=== PATIENT | male | born 1955 | race Caucasian/White ===

== ENCOUNTER → 2024-01-30 13:51 | Outpatient (REF) | payer MEDICARE, OTHER, SELFPAY | LOC: RAD 13:51 | PROVIDERS: ATTENDING PHYSICIAN Nurse Practitioner Family | DX: R05.1 Acute cough (principal) | CPT/HCPCS: 71046 ==

== ENCOUNTER → 2024-10-13 15:07 | Outpatient (REF) | payer MEDICARE, OTHER, SELFPAY | LOC: DHSLP 15:07 | PROVIDERS: ATTENDING PHYSICIAN Internal Medicine Critical Care Medicine; FAMILY PHYSICIAN Family Medicine | DX: G47.33 Obstructive sleep apnea (adult) (pediatric) (principal); G47.31 Primary central sleep apnea; G47.61 Periodic limb movement disorder | CPT/HCPCS: 95810 ==

== ENCOUNTER 2024-12-03 12:22 | Emergency (ER) | payer MEDICARE, OTHER, SELFPAY ==
[2024-12-03 12:23] VITALS: BP 142/75
--- NOTE | 2024-12-03 13:24 | ED.GENMED ---
History of Present Illness
General
Chief Complaint: Head Injury
Source: patient
Exam Limitations: none
Time Seen by Provider: 12/03/24 13:12
Nursing documentation reviewed up to this point in time: agreed with
History of Present Illness
History of Present Illness:
69-year-old male presenting to the emergency department today after slipping on ice hitting the back of his head did not lose consciousness not on blood thinners does take aspirin daily. Has noticed a enlarging lump to the back of his head. Has
some mild left posterior neck pain. Denies any numbness weakness abdominal pain chest pain. Has been able to ambulate.
Past History
Past History
ED Past Medical History: CVA, GERD and Other (ADHD, hemolytic anemia pituitary disorder, zoster)
ED Past Surgical History: Tonsilectomy and Other (History of hernia surgery as a child, post reduction 27 years ago,)
Social History
Tobacco: Non-smoker
Personal:
Living: with family
Employment: Not employed
Review of Systems
Review of Systems
Allergies reviewed?: Yes
All Other Systems: ROS reviewed and negative except as documented in HPI and ROS
Phy Exam
Physical Exam
Physical Exam:
GENERAL: Alert , in no apparent distress
EYE: pupils equal and reactive
NECK: Supple, no significant adenopathy.
ENT: Hematoma to the left posterior scalp o/p clr, mmm.
CARDIAC: Regular rate and rhythm .
LUNGS: Clear breath sounds bilaterally, no acute respiratory distress, no wheezes/rales/rhonchi
ABDOMEN: Soft, without focal tenderness, no r/g, no cvat
NEUROLOGICAL: Alert and oriented, no focal neuro deficits
SKIN: Warm and dry, skin intact.
MUSCULOSKELETAL: No edema, well perfused.
PSYCH: Normal and appropriate interaction.
Course
Orders/Labs/Results
Orders:
Orders
12/03/24 13:23
CT Cervical Spine W/o Iv Contr Urgent
Comment:
Reason For Exam: left neck pain
CT Head W/o Iv Contrast Urgent
Comment:
Reason For Exam: fall hit back of head
Vital Signs
Initial and Last Documented VS:
Initial Vital Signs
Temp Pulse Resp BP Pulse Ox
98.5 F 89 20 142/75 95
12/03/24 12:23 12/03/24 12:23 12/03/24 12:23 12/03/24 12:23 12/03/24 12:23
Last Documented Vital Signs
Temp Pulse Resp BP Pulse Ox
98.5 F 89 20 142/75 95
12/03/24 12:23 12/03/24 12:23 12/03/24 12:23 12/03/24 12:23 12/03/24 12:23
MDM/Problems Addressed
MDM/Problems Addressed:
69-year-old male presenting to the emergency department after slipping on ice hitting the back of his head denies additional injuries otherwise. Does have a hematoma to his left posterior scalp some mild discomfort to the left posterior neck no
midline pain normal neurologic evaluation. Due to his advanced age plan for CT scan for further assessment. CT scan negative of the head and neck no emergent findings stable for outpatient management return precautions given.
*Critical Care Note
Total Time (30-74mins, 75-104mins- exclusive of procedures): Not Applicable
ED Attending Note
-
Portions of this chart may have been created with voice recognition software.� Occasional wrong word or��sound alike� substitutions may have occurred due to the inherent limitations of voice recognition software.
Discharge Plan
Departure
Patient Disposition: Home (Routine Discharge)
Date of Disposition: 12/03/24
Time of Disposition: 14:59
Patient with high blood pressure during this ER visit?: No
Condition: Good
Covid-19: Not Applicable
Discharge Problem:
Fall, Hematoma of occipital region of scalp
Instructions: Minor Head Injury (DC)
Prescriptions:
No Action
aspirin 325 MG tablet
325 mg PO DAILY
multivitamin 1 EACH tablet
1 ea PO DAILY
venlafaxine 75 MG capsule,extended release 24hr
75 mg PO DAILY
dextroamphetamine-amphetamine [Adderall] 30 MG tablet
30 mg PO DAILY
Referrals:
Franklin De La Cruz DO [Family Provider] -
Activity Restrictions/Additional Instructions:
You came to the emergency department today with concerns after a fall. Here you had a CT scan of your neck and head without emergent findings. Return to the emergency department any worsening, new or concerning symptoms.
Interventions
Interventions:
*Risk Screen - Suicide Last Done: 12/03/24 12:23
*General Assessment Last Done: 12/03/24 12:23
*Neglect/Abuse Screening Last Done: 12/03/24 12:23
ED- Neurological Assessment Last Done: 12/03/24 13:55
ED-Skin Assessment Last Done: 12/03/24 13:55
Discharge Date and Time
Print Language: LATVIAN
== END 2024-12-03 15:18 | disposition home or self-care (01) ==
LOC: EMR 12:22
PROVIDERS: EMERGENCY PHYSICIAN Emergency Medicine; FAMILY PHYSICIAN Family Medicine
DX: S00.03XA Contusion of scalp, initial encounter (principal); W00.0XXA Fall on same level due to ice and snow, initial encounter; K21.9 Gastro-esophageal reflux disease without esophagitis; Z86.73 Personal history of transient ischemic attack (TIA), and cerebral infarction without residual deficits
CPT/HCPCS: 99284; 70450; 72125

== ENCOUNTER 2025-01-14 06:23 | Day surgery (SDC) | payer MEDICARE, OTHER, SELFPAY | END 2025-01-14 16:06 | disposition home or self-care (01) | LOC: GI 06:23 | PROVIDERS: ATTENDING PHYSICIAN Student in an Organized Health Care Education/Training Program | DX: K62.5 Hemorrhage of anus and rectum (principal); R19.5 Other fecal abnormalities; K64.4 Residual hemorrhoidal skin tags; K55.21 Angiodysplasia of colon with hemorrhage; D12.2 Benign neoplasm of ascending colon; D12.3 Benign neoplasm of transverse colon; D12.4 Benign neoplasm of descending colon; K63.5 Polyp of colon | CPT/HCPCS: 45380; 45382; 88305 ==

== ENCOUNTER 2025-04-25 23:06 | Inpatient (IN) | payer MEDICARE, OTHER, SELFPAY ==
[2025-04-25 17:22] VITALS: BP 143/69
[2025-04-25 17:49] LABS: Hematocrit 36.5 % (39.0-52.0); Hemoglobin 12.1 g/dL (13.0-18.0); Mean Corp Hgb Conc. 33.2 g/dL (33.0-37.0); Mean Corpuscular Volume 82.4 fL (80.0-94.0); Nucleated Red Blood Cells % 0 % (-); Platelet Count 197 10^3/uL (130-400); Red Cell Dist. Width 15.2 % (11.5-14.5)
[2025-04-25 18:06] LABS: ALT (SGPT) 28 U/L (0-50); AST (SGOT) 38 U/L (17-59); Albumin 4.1 g/dl (3.5-5.0); Alkaline Phosphatase 129 U/L (38-126); Blood Urea Nitrogen 17 mg/dl (9-20); Calcium 9.0 mg/dl (8.4-10.2); Carbon Dioxide 26 mmol/L (22-30); Chloride 107 mmol/L (98-107); Glucose 124 mg/dl (70-99); Potassium 4.2 mmol/L (3.5-5.1); Sodium 139 mmol/L (135-145); Total Protein 7.0 g/dl (6.3-8.2); eGFR > 60.00
[2025-04-25 18:13] LABS: Troponin I < 0.012 ng/ml
[2025-04-25 18:50] VITALS: BP 124/65
--- NOTE | 2025-04-25 18:59 | ED.GENMED ---
History of Present Illness
<Risa Carranza PA-C - Last Filed: 04/26/25 01:31>
General
Chief Complaint: Fainting/Passed Out
Source: patient
Exam Limitations: none
Time Seen by Provider: 04/25/25 18:55
History of Present Illness
History of Present Illness:
69yoM with a history of anemia and prior CVA presenting via EMS for evaluation after a syncopal episode around 4pm this afternoon. Patient was outside at a [employer] [facility] [employer] match. He had a beer today which is unusual for him. He admits he was not drinking
much water. He was sitting down when he started to experience abdominal pain and the urge to have a bowel movement. He then felt like 'something was not right' and lost consciousness. He was unconscious for about 30 seconds. There was no
seizure-like activity or incontinence. He denies any preceding dizziness, chest pain, shortness of breath, palpitations. He continues to have 'gas pains' in his abdomen and has had 3 episodes of diarrhea since the syncopal episode. He has a
history of syncopal episodes every 6 months or so but he typically has more warning before passing out. He denies any history of heart disease. Patient received 1L NS prehospital.
Past History
<Risa Carranza PA-C - Last Filed: 04/26/25 01:31>
Past History
ED Past Medical History: CVA, GERD and Other (ADHD, hemolytic anemia pituitary disorder, zoster)
ED Past Surgical History: Tonsilectomy and Other (History of hernia surgery as a child, post reduction 27 years ago,)
Social History
Tobacco: Non-smoker
Personal:
Living: with family
Employment: Not employed
Phy Exam
<Risa Carranza PA-C - Last Filed: 04/26/25 01:31>
General Physical Exam
General Presentation: no apparent distress
General Skin: warm and dry
General Habitus: normal
General Mental: alert
ENT Exam
ENT Exam: normocephalic
Cardiovascular Exam
Cardiovascular Exam: regular rate/rhythm
Pulmonary Exam
Pulmonary Exam: lungs clear, no respiratory distress, no rales, no crackles, no rhonchi and no wheezing
Gastrointestinal Exam
Gastrointestinal Exam: soft, non distended and other (Mild generalized tenderness)
Neurological Exam
Neurological Exam: alert
[place] Coma Scale
Eye Opening: Spontaneous
Verbal Response: Oriented
Motor Response: Obeys Commands
GCS Total Score: 15
Skin Exam
Skin Exam: normal color and warm/dry
Psychiatric Exam
Psychiatric Exam: normal mood/affect
<Molina Steward MD - Last Filed: 04/25/25 21:46>
[place] Coma Scale
GCS Total Score: 15
Course
<Risa Carranza PA-C - Last Filed: 04/26/25 01:31>
Orders/Labs/Results
Orders:
Orders
04/25/25 17:25
Electrocardiogram (*1) Urgent
Reason for Study: Chest Pain
EKG- Treatment ONCE
04/25/25 17:36
Complete Blood Count/With Diff Urgent
Comprehensive Metabolic Panel Urgent
Lipase Urgent
Comment: ADD ON
Troponin I Urgent
04/25/25 19:23
Cardiac Monitoring- Treatment ONCE
0.9% Sodium Chloride 500 ml [Nss] 500 ml IV BOLUS
04/25/25 19:24
Add On- LAB Urgent
Tests Added?: lipase
CT Abd/pelvis W Iv Cont Urgent
Comment:
Reason For Exam: abd pain, syncope
EKG- Treatment ONCE
04/25/25 19:55
Ondansetron Injectable [Zofran] 4 mg .ROUTE .STK-MED ONE
Ondansetron Injectable [Zofran] 4 mg IV NOW STA
04/25/25 20:00
Stool Culture Urgent
PRATIK Source: Feces/Stool
Specimen Description:
Date Specimen was Collected: 04/25/25
Time Specimen was Collected: 19:54
04/25/25 20:07
Lactate Level [Lactic Acid] Urgent
04/25/25 20:30
Electrocardiogram (*1) Urgent
Reason for Study: Syncope
04/25/25 21:37
Type+Screen Urgent
Protime/PTT Urgent
Troponin I Urgent
04/25/25 22:18
Add On - Microbiology Urgent
Comments:: stool
Tests Added?: C DIFF
04/25/25 22:34
0.9% Sodium Chloride 1000 ml [Nss] 1,000 ml IV BOLUS
04/25/25 22:52
Admit/Transfer Patient As Directed
Co-Sign Provider:
Level of Care: Inpatient admission
Assign to:: Telemetry
Physician / Group: Adeline Snow
Diagnosis: colitis
Reason for Telemetry: Chest Pain syndromes
Date to Stop Telemetry: 04/27/25
Time to Stop Telemetry: 11:00
Reason for Hospitalization: colitis
Expected length of stay greater than two midnights?: Yes
ELOS- Estimated Length of Stay in days: 3
I certify the patient meets the requirements for IP care: Yes
PRN Pain Medication Management As Directed
May give lesser potent ordered pain med per pt: Yes
preference::
Protocol:: Medication orders for pain may be administered in a
manner that supports deferring to patient preference
when the pt is:
- Requesting an ordered lesser potent pain medication.
Least to most potent pain medications are defined
as: acetaminophen < NSAID < tramadol < opioids
(morphine, oxycodone, hydromorphone).
- Requesting a lesser dose of the same medication IF
ORDERED.
- Requesting a less intrusive route of administration
if both routes are prescribed by the provider (PO <
IV).
04/25/25 22:55
Code Status As Directed
Resuscitation Status: Full Code
04/25/25 23:45
Piperacillin/Tazo 3.375 Gram [Zosyn] 3.375 gram in 50 ml IV Q6H
04/26/25 00:12
0.9% Sodium Chloride 1000 ml [Nss] 1,000 ml IV 100 mls/hr
Acetaminophen [Tylenol] 650 mg PO Q4HPRN PRN
HYDROmorphone [Dilaudid] 0.5 mg IV Q3HPRN PRN
Ondansetron Injectable [Zofran] 4 mg IV Q6HPRN PRN
04/26/25 00:12
SURGICAL CONSULT Routine
Consulting Provider: Polo Melara
Was physician already notified: Yes
Activity As Directed
Activity Level: As Tolerated
Pneumatic Compression Sleeves As Directed
Type: Knee high
Vital Signs As Directed
Frequency: Per unit guidelines
DX Deep Vein Thrombosis Video Routine
04/26/25 01:06
Hemoglobin Q6H
04/26/25 01:07
Troponin I Q6H
04/26/25 Breakfast
NPO
Allow oral meds: Yes
Allow clear liquids: Sips of Clears
Basic Metabolic Panel IN AM
Complete Blood Count/With Diff IN AM
Magnesium IN AM
04/26/25 07:00
Hemoglobin Q6H
Troponin I Q6H
04/26/25 08:00
Pantoprazole [Protonix] 40 mg PO DAILY
Venlafaxine Extended Release [Effexor Xr] 75 mg PO DAILY
04/26/25 13:00
Hemoglobin Q6H
04/26/25 18:00
Tamsulosin [Flomax] 0.4 mg PO QPM
04/26/25 19:00
Hemoglobin Q6H
04/27/25 11:00
DC Protocol for Telemetry ONCE
Abnormal Lab Results
04/25/25
17:36
RBC 4.43 L 10^6/uL
(4.70-6.10)
Hgb 12.1 L g/dL
(13.0-18.0)
Hct 36.5 L %
(39.0-52.0)
RDW 15.2 H %
(11.5-14.5)
Glucose 124 H mg/dl
(70-99)
Alkaline Phosphatase 129 H U/L
(38-126)
04/25/25 17:36
04/25/25 17:36
Vital Signs
Initial and Last Documented VS:
Initial Vital Signs
Temp Pulse Resp BP Pulse Ox
97.8 F 71 18 143/69 96
04/25/25 17:22 04/25/25 17:22 04/25/25 17:22 04/25/25 17:22 04/25/25 17:22
Last Documented Vital Signs
Temp Pulse Resp BP Pulse Ox
98.4 F 61 16 147/67 98
04/26/25 00:36 04/26/25 00:36 04/26/25 00:36 04/26/25 00:36 04/26/25 00:36
<Molina Steward MD - Last Filed: 04/25/25 21:46>
Orders/Labs/Results
Orders:
Orders
04/25/25 17:25
Electrocardiogram (*1) Urgent
Reason for Study: Chest Pain
EKG- Treatment ONCE
04/25/25 17:36
Complete Blood Count/With Diff Urgent
Comprehensive Metabolic Panel Urgent
Lipase Urgent
Comment: ADD ON
Troponin I Urgent
04/25/25 19:23
Cardiac Monitoring- Treatment ONCE
0.9% Sodium Chloride 500 ml [Nss] 500 ml IV BOLUS
04/25/25 19:24
Add On- LAB Urgent
Tests Added?: lipase
CT Abd/pelvis W Iv Cont Urgent
Comment:
Reason For Exam: abd pain, syncope
EKG- Treatment ONCE
04/25/25 19:55
Ondansetron Injectable [Zofran] 4 mg .ROUTE .STK-MED ONE
Ondansetron Injectable [Zofran] 4 mg IV NOW STA
04/25/25 20:00
Stool Culture Urgent
PRATIK Source: Feces/Stool
Specimen Description:
Date Specimen was Collected: 04/25/25
Time Specimen was Collected: 19:54
04/25/25 20:07
Lactate Level [Lactic Acid] Urgent
04/25/25 20:30
Electrocardiogram (*1) Urgent
Reason for Study: Syncope
04/25/25 21:37
Type+Screen Urgent
Protime/PTT Urgent
Troponin I Urgent
04/25/25 22:18
Add On - Microbiology Urgent
Comments:: stool
Tests Added?: C DIFF
04/25/25 22:34
0.9% Sodium Chloride 1000 ml [Nss] 1,000 ml IV BOLUS
04/25/25 22:52
Admit/Transfer Patient As Directed
Co-Sign Provider:
Level of Care: Inpatient admission
Assign to:: Telemetry
Physician / Group: Adeline Snow
Diagnosis: colitis
Reason for Telemetry: Chest Pain syndromes
Date to Stop Telemetry: 04/27/25
Time to Stop Telemetry: 11:00
Reason for Hospitalization: colitis
Expected length of stay greater than two midnights?: Yes
ELOS- Estimated Length of Stay in days: 3
I certify the patient meets the requirements for IP care: Yes
PRN Pain Medication Management As Directed
May give lesser potent ordered pain med per pt: Yes
preference::
Protocol:: Medication orders for pain may be administered in a
manner that supports deferring to patient preference
when the pt is:
- Requesting an ordered lesser potent pain medication.
Least to most potent pain medications are defined
as: acetaminophen < NSAID < tramadol < opioids
(morphine, oxycodone, hydromorphone).
- Requesting a lesser dose of the same medication IF
ORDERED.
- Requesting a less intrusive route of administration
if both routes are prescribed by the provider (PO <
IV).
04/25/25 22:55
Code Status As Directed
Resuscitation Status: Full Code
04/25/25 23:45
Piperacillin/Tazo 3.375 Gram [Zosyn] 3.375 gram in 50 ml IV Q6H
04/26/25 00:12
0.9% Sodium Chloride 1000 ml [Nss] 1,000 ml IV 100 mls/hr
Acetaminophen [Tylenol] 650 mg PO Q4HPRN PRN
HYDROmorphone [Dilaudid] 0.5 mg IV Q3HPRN PRN
Ondansetron Injectable [Zofran] 4 mg IV Q6HPRN PRN
04/26/25 00:12
SURGICAL CONSULT Routine
Consulting Provider: Polo Melara
Was physician already notified: Yes
Activity As Directed
Activity Level: As Tolerated
Pneumatic Compression Sleeves As Directed
Type: Knee high
Vital Signs As Directed
Frequency: Per unit guidelines
DX Deep Vein Thrombosis Video Routine
04/26/25 01:06
Hemoglobin Q6H
04/26/25 01:07
Troponin I Q6H
04/26/25 Breakfast
NPO
Allow oral meds: Yes
Allow clear liquids: Sips of Clears
Basic Metabolic Panel IN AM
Complete Blood Count/With Diff IN AM
Magnesium IN AM
04/26/25 07:00
Hemoglobin Q6H
Troponin I Q6H
04/26/25 08:00
Pantoprazole [Protonix] 40 mg PO DAILY
Venlafaxine Extended Release [Effexor Xr] 75 mg PO DAILY
04/26/25 13:00
Hemoglobin Q6H
04/26/25 18:00
Tamsulosin [Flomax] 0.4 mg PO QPM
04/26/25 19:00
Hemoglobin Q6H
04/27/25 11:00
DC Protocol for Telemetry ONCE
Abnormal Lab Results
04/25/25
17:36
RBC 4.43 L 10^6/uL
(4.70-6.10)
Hgb 12.1 L g/dL
(13.0-18.0)
Hct 36.5 L %
(39.0-52.0)
RDW 15.2 H %
(11.5-14.5)
Glucose 124 H mg/dl
(70-99)
Alkaline Phosphatase 129 H U/L
(38-126)
04/25/25 17:36
04/25/25 17:36
Vital Signs
Initial and Last Documented VS:
Initial Vital Signs
Temp Pulse Resp BP Pulse Ox
97.8 F 71 18 143/69 96
04/25/25 17:22 04/25/25 17:22 04/25/25 17:22 04/25/25 17:22 04/25/25 17:22
Last Documented Vital Signs
Temp Pulse Resp BP Pulse Ox
98.4 F 61 16 147/67 98
04/26/25 00:36 04/26/25 00:36 04/26/25 00:36 04/26/25 00:36 04/26/25 00:36
<Risa Carranza PA-C - Last Filed: 04/26/25 01:31>
MDM/Problems Addressed
Differential Diagnosis Includes:
69yoM here after a syncopal episode. Preceded by abdominal pain and urge to defecate. Denies CP/SOB. Now with diarrhea. Hx of vasovagal syncopal episodes in the past. VSS. He is non-toxic appearing. Differential diagnosis includes but is not limited
to: vasovagal syncope, orthostatic hypotension, dehydration, infectious diarrhea, cardiogenic syncope, doubt AAA
Initial ED plan: Labs obtained in triage. EKG shows normal sinus rhythm without ischemic changes and troponin within normal limits. Hemoglobin is 12.1 which is near baseline. Will check CT abdomen, stool culture, and repeat troponin/EKG. IV
fluid bolus.
<Risa Carranza PA-C - Last Filed: 04/26/25 01:31>
*Pulse Oximetry
SaO2: 96
Oxygen Mode of Delivery: Room air
Patient hypoxic: no (96%)
*EKG
Interpreted by ED Provider?: Yes
EKG Intrepretation Date: 04/25/25
Heart Rate: 66
Rate: normal
Rhythm: sinus
[place]: left axis deviation
Interval: normal interval
Ischemia: no ischemia
*Critical Care Note
Total Time (30-74mins, 75-104mins- exclusive of procedures): Not Applicable
<Risa Carranza PA-C - Last Filed: 04/26/25 01:31>
Update Note
Update Note:
Patient had episode of diarrhea after initial exam. Stool appears bloody and Hemoccult is positive. Hemoglobin is 12.1 which is stable from prior labs in . Lactate added which is normal. CT shows 'Splenomegaly measuring up to 13.6 cm
with a mildly hyperdense, crescent collection along the spleen which likely represents a perisplenic hematoma.' Patient denies any trauma today during the episode and he has no pain in the LUQ on exam. He points to the lower abdomen for the location
of the pain. Imaging also shows evidence of colitis. 'Colon at the splenic flexure appears mildly hypoattenuating which can be seen with ischemia.' Again, lactate is normal and overall low clinical suspicion for ischemic colitis. General surgery
notified and patient admitted for further management.
ED Attending Note
<Risa Carranza PA-C - Last Filed: 04/26/25 01:31>
-
Portions of this chart may have been created with voice recognition software.� Occasional wrong word or��sound alike� substitutions may have occurred due to the inherent limitations of voice recognition software.
<Molina Steward MD - Last Filed: 04/25/25 21:46>
ED Attending Note
Patient seen and examined by attending physician: Yes
I performed the substantive portion of visit, reviewed & personally made and approve the management plan that is documented in note by myself or ALYSA.: Yes
ED Attending Note:
Patient with a abdominal cramps followed by syncope. No trauma today. Complaining of lower abdominal cramps mild diarrhea. No chest pain shortness of breath. History of vasovagal syncope. Played a sport a few weeks ago where he may have fell to
the ground a couple times but had no abdominal pain at that time.
On exam patient is nontoxic in no distress. Is warm and dry perfusing well. Stable vital signs. No respiratory distress. No left upper quadrant tenderness no rebound or guarding no mass or hernia. Very minimal lower abdominal tenderness again
no rebound or guarding no mass or hernia.
Symptoms today consistent with vasovagal syncope. Hemoglobin is stable. EKG is stable. Vital signs are stable. He does have a subcapsular hematoma and splenomegaly. Based on his history and clinical findings this is likely not acute but
subacute. Possibly related to the fall 2 weeks ago possibly spontaneous. Either way it is encapsulated and stable. We discussed with surgery and medicine. They will admit for further care.
Discharge Plan
Departure
Patient Disposition: Admit
Date of Disposition: 04/25/25
Time of Disposition: 21:25
Presentation/result/management discussed w/ accepting MD/DO: Hospitalist
Discharge Problem:
Syncope, Colitis, Splenic laceration
Interventions
Interventions:
*Risk Screen - Suicide Last Done: 04/25/25 17:24
*General Assessment Last Done: 04/25/25 17:24
*Neglect/Abuse Screening Last Done: 04/25/25 17:24
*ED- Fall Risk Assessment Last Done: 04/25/25 20:48
*ED COVID-19 Vaccine History Last Done: 04/25/25 20:48
*Nursing Disposition Last Done: 04/26/25 00:29
ED- Cardiac Assessment Last Done: 04/25/25 20:48
ED- Neurological Assessment Last Done: 04/25/25 20:48
Discharge Date and Time
Discharge Date/Time: 04/26/25 00:32
[2025-04-25 19:14] VITALS: BP 140/66
[2025-04-25 19:56] VITALS: BP 163/76
[2025-04-25 19:56] LABS: Lipase 173 U/L (23-300)
[2025-04-25] MEDS: ZOFRAN 4 MG IV (19:57)
[2025-04-25] MEDS: NSS 500 IV (19:58)
[2025-04-25 20:00] VITALS: BP 160/73
[2025-04-25 21:12] VITALS: BP 153/84
[2025-04-25 22:05] LABS: INR 1.09; PT 14.4 Sec (11.4-14.6)
[2025-04-25 22:06] LABS: APTT 25.3 Sec (23.4-35.0)
--- NOTE | 2025-04-25 22:06 | HPS.HSE ---
Family Physician
-
Family Physician: Franklin De La Cruz
Chief Complaint
-
abdominal pain
History of Present Illness
Mr. Dudley Dan is a 69 yo man with hx CVA, GERD, autoimmune hemolytic anemia, ADHD/Depression presents to the ER post an episode of syncope that occurred around 4PM.
Patient was at a polo match when he had onset of abdominal pain and urge to have a bowel movement. He then lost consciousness. Patient was unconscious for about 30 seconds. He denies preceding chest pain or dizziness. He was brought to the ER.
He reports that in the ER he had a normal BM followed by diarrhea that is now bloody. He has some discomfort lower abdomen. No nausea/vomiting. No fevers, + chills.
Prior to episode today he was outside in heat and not drinking water. He drank one beer.
He has a history of syncope and has had full cardiac evaluation without known etiology. He has preceding symptoms of lightheadedness prior to events (different than today).
No chest pain or shortness of breath. No LE swelling.
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 He denies trauma but reports that three weeks ago he was playing Fistball (similar to volleyball) where he reports sliding to catch ball.
Medical History
Past Medical History
Past Medical History: Reports Other (CVA, GERD, autoimmune hemolytic anemia, ADHD/Depression)
Past Surgical History: Reports None
Social History
Tobacco: Non-smoker
Alcohol: Occasional (beer today )
Family History
Family History: Not pertinent
Allergies / Home Medications
Allergies reflects when Allergies were last updated in [facility].
Home Medications with original date entered in [facility]
Allergy/Medication List:
Allergies
Allergy/AdvReac Type Severity Reaction Status Date / Time
No Known Drug Allergies Allergy Unknown Verified 12/03/24 12:27
Sulfa (Sulfonamide Allergy Rash Verified 12/03/24 12:27
Antibiotics)
molds Allergy Unknown Uncoded 12/03/24 12:27
pollens Allergy Unknown Uncoded 12/03/24 12:27
seasonal Allergy Unknown Uncoded 12/03/24 12:27
Home Medications
aspirin 325 mg tablet 325 mg PO DAILY 04/28/13
dextroamphetamine-amphetamine 30 mg tablet (Adderall) 30 mg PO DAILY 12/20/16
multivitamin 1 ea PO DAILY 12/20/16
venlafaxine 75 mg capsule,extended release 24 hr 75 mg PO DAILY 12/20/16
omeprazole 40 mg capsule,delayed release 40 mg PO DAILY 04/25/25
tamsulosin 0.4 mg capsule (Flomax) 0.4 mg PO DAILY 04/25/25
Review of Systems
-
History Source: Patient
A 12 point ROS was completed and negative except as noted: Yes
Physical Exam
Vital Signs
Vital Signs
Temp Pulse Resp BP Pulse Ox
97.8 F 67 23 153/84 98
04/25/25 17:22 04/25/25 21:15 04/25/25 21:15 04/25/25 21:12 04/25/25 21:15
Physical Exam
General: No Apparent Distress
HEENT: PERRLA
Respiratory: Clear; No Wheezes
Cardiac: S1/S2 and Regular Rhythm
GI: Soft and Other (tenderness to palpation lower quadrants, no rebound or guarding )
Musculoskeletal: No Edema
Skin: Warm and Dry; No Rash
Neuro: AO x 3
Psych: Calm
Laboratory Results
-
04/25/25 17:36
04/25/25 17:36
Laboratory Results
Lactic Acid 1.3 mmol/L (0.7-2.0) 04/25/25 20:07
Total Bilirubin 0.8 mg/dl (0.2-1.3) 04/25/25 17:36
AST 38 U/L (17-59) 04/25/25 17:36
ALT 28 U/L (0-50) 04/25/25 17:36
Alkaline Phosphatase 129 U/L (38-126) H 04/25/25 17:36
Troponin I < 0.012 ng/ml 04/25/25 17:36
Lipase 173 U/L (23-300) 04/25/25 17:36
Data Reviewed
-
Diagnostic Radiology: Report Reviewed by me
Lab Data: Labs Reviewed by me
Impression/Plan
-
Mr. Dudley Dan is a 69 yo man with hx CVA, GERD, autoimmune hemolytic anemia, ADHD/Depression presents to the ER post an episode of syncope that occurred around 4PM. Syncope preceded by GI discomfort, likely vasovagal. He is found to have
colitis and incidental finding of perisplenic hematoma which likely occurred from playing contact sport 3 weeks ago.
Triage VS: T 97.8, P 71, RR 18, BP 143/69, Spo2 96%
LABS: WBC 5.5, Hg 12.1, PLT 197, Na 139, K+ 4.2, Cl 107, CO2 26, Cr 1.1, Glucose 124, Lactate 1.3, T. Bili 0.8 AST 38, ALT 28, Trop < 0.012 x 2, Lipase 173
CT A/P
IMPRESSION:
Splenomegaly measuring up to 13.6 cm with a mildly hyperdense, crescent collection along the spleen which likely represents a perisplenic hematoma. This measures 1.2 cm in maximal thickness.
There is mild wall thickening with pericolonic stranding throughout the colon which likely represents pancolitis. The colon at the splenic flexure appears mildly hypoattenuating which can be seen with ischemia. Consider correlation with lactate
levels.
2.7 cm hemangioma within the liver, similar to prior.
Small hiatal hernia.
Vasovagal Syncope
Hx Syncope without known etiology
-with preceding abdominal cramping and finding of colitis on CT scan, suspect vasovagal
-admit to telemetry
-trend Troponin
-treat Colitis (as below)
-IVF
Pancolitis, possible ischemic colitis
Bright red blood per rectum in setting of colitis
-lactate 1.3, will trend given CT description of possible ischemia. Patient dehydrated during the day increasing risk of possible ischemic colitis. Exam without peritoneal signs
-start IV Zosyn
-IVF
-NPO except sips
-follow up stool studies
-trend Hg, blood consent signed in ER
-hold APPLICATIONS ARCHITECT asa 325mg for now
Perisplenic Hematoma, likely subacute
patient with history of Splenomegaly
-suspect injury to spleen 3 weeks ago during match of Fistball
-GS aware of finding and will place formal consult for tomorrow
-patient without upper abdominal pain on exam
BPH - APPLICATIONS ARCHITECT Flomax
ADHD - patient takes Adderall at home, will hold here
GERD - APPLICATIONS ARCHITECT PPI
DVT PPx SCD
FULL CODE
76 minutes spent on patient care
[2025-04-25 22:10] LABS: Troponin I < 0.012 ng/ml
[2025-04-25] MEDS: NSS 1000 IV (23:16)
[2025-04-25 23:26] VITALS: BMI 29.2
[2025-04-25] MEDS: ZOSYN 50 IV (23:38)
[2025-04-26] VITALS (8 sets, daily range): BP systolic 124–156; BP diastolic 58–71; BMI 28.9
[2025-04-26] MEDS: NSS 1000 IV ×3 (01:09→23:41)
[2025-04-26 01:21] LABS: Hemoglobin 12.5 g/dL (13.0-18.0)
[2025-04-26 02:01] LABS: Troponin I < 0.012 ng/ml
[2025-04-26] MEDS: DILAUDID 0.5 MG IV ×2 (03:09→17:09)
[2025-04-26] MEDS: ZOSYN 50 IV ×2 (05:45→11:06)
[2025-04-26 06:41] LABS: Hematocrit 34.3 % (39.0-52.0); Hemoglobin 11.8 g/dL (13.0-18.0); Mean Corp Hgb Conc. 34.4 g/dL (33.0-37.0); Mean Corpuscular Volume 80.9 fL (80.0-94.0); Nucleated Red Blood Cells % 0 % (-); Platelet Count 177 10^3/uL (130-400); Red Cell Dist. Width 15.2 % (11.5-14.5)
[2025-04-26 06:42] LABS: Hemoglobin 11.6 g/dL (13.0-18.0)
[2025-04-26 07:09] LABS: Troponin I < 0.012 ng/ml
[2025-04-26 07:27] LABS: Blood Urea Nitrogen 13 mg/dl (9-20); Calcium 8.4 mg/dl (8.4-10.2); Carbon Dioxide 25 mmol/L (22-30); Chloride 111 mmol/L (98-107); Estimated Creatinine Clearance 79 ml/min; Glucose 131 mg/dl (70-99); Magnesium 2.1 mg/dl (1.6-2.3); Potassium 4.0 mmol/L (3.5-5.1); Sodium 139 mmol/L (135-145); eGFR > 60.00
--- NOTE | 2025-04-26 07:31 | W.PN.HOSP.TC ---
Today's Communication/Plan
-
See plan
Assessment / Plan
Assessment / Plan
Physical Exam
General: No Apparent Distress
HEENT: Normocephalic
Respiratory: Clear to Auscultation Bilaterally
Cardiac: S1/S2 and Regular Rhythm
GI: Soft and Other (tenderness to palpation lower quadrants, no rebound or guarding)
Musculoskeletal: No Edema
Skin: Warm and Dry
Neuro: AO x 3
Psych: Calm
Assessment/Plan
69 y/o male with history of prostate cancer s/p XRT, CVA, GERD, autoimmune hemolytic anemia, ADHD/Depression presented to the ER post an episode of syncope that occurred around 4PM on 04/25/25. Patient was at a polo match when he had onset of
abdominal pain and urge to have a bowel movement. He then lost consciousness. Patient was unconscious for about 30 seconds. He denied preceding chest pain or dizziness. He was brought to the ER. He reported that in the ER he had a normal BM
followed by diarrhea that is now bloody. He has some discomfort lower abdomen. No nausea/vomiting. No fevers, + chills.
Prior to episode he was outside in heat and not drinking water. He drank one beer.
He has a history of syncope and has had full cardiac evaluation without known etiology. He has preceding symptoms of lightheadedness prior to events (different than today).
No chest pain or shortness of breath. No LE swelling.
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 He denied trauma but reported that three weeks prior, he was playing Fistball (similar to volleyball) where he reported sliding to catch ball.

Triage VS: T 97.8, P 71, RR 18, BP 143/69, Spo2 96%
LABS: WBC 5.5, Hg 12.1, PLT 197, Na 139, K+ 4.2, Cl 107, CO2 26, Cr 1.1, Glucose 124, Lactate 1.3, T. Bili 0.8 AST 38, ALT 28, Trop < 0.012 x 2, Lipase 173
CT A/P
IMPRESSION:
Splenomegaly measuring up to 13.6 cm with a mildly hyperdense, crescent collection along the spleen which likely represents a perisplenic hematoma. This measures 1.2 cm in maximal thickness.
There is mild wall thickening with pericolonic stranding throughout the colon which likely represents pancolitis. The colon at the splenic flexure appears mildly hypoattenuating which can be seen with ischemia. Consider correlation with lactate
levels.
2.7 cm hemangioma within the liver, similar to prior.
Small hiatal hernia.

Vasovagal Syncope
History of Syncope without known etiology
-with preceding abdominal cramping and finding of colitis on CT scan, suspect vasovagal
-admit to telemetry
-trend Troponin
-treat Colitis (as below)
-IVF
Pancolitis, possible ischemic colitis
Bright red blood per rectum in setting of colitis suspected radiation proctitis (history of Prostate Cancer status post XRT) and AVMs, and less likely related to an infectious or ischemic event
-lactate 1.3, will trend given CT description of possible ischemia. Patient dehydrated during the day increasing risk of possible ischemic colitis. Exam without peritoneal signs
-Stop Zosyn and monitor
-IVF
-Clear Liquids diet is okay
-follow up stool studies
-trend Hg, blood consent signed in ER
-hold INVESTIGATIVE SHOPPER asa 325mg for now
-Consider CTA Abdomen Pelvis and GI evaluation and colonoscopy if bleeding persists.
Perisplenic Hematoma, likely subacute -- most likely a traumatic event sustained during his prior for small activities; less likely related to splenic swelling from an autoimmune reaction
patient with history of Splenomegaly
-Suspected injury to spleen 3 weeks ago during match of Fistball
-Restrict activities for the next 2 to 4 weeks to allow this area to completely heal
-GS aware of finding and will place formal consult for tomorrow
-patient without upper abdominal pain on exam
BPH - INVESTIGATIVE SHOPPER Flomax
ADHD - patient takes Adderall at home, will hold here
GERD - INVESTIGATIVE SHOPPER PPI
DVT PPx SCD
FULL CODE
Anticipated Discharge: 24 - 48 hours
Subjective/Interval History
-
Date of Service: April 26, 2025
Patient was seen and examined. He reported that he still has cramping abdominal pain and multiple bloody stools overnight.
Objective Data
-
Labs:
Laboratory Results
04/25/25 04/26/25 04/26/25
21:37 01:06 06:31
WBC 8.3
Hgb 12.5 L 11.8 L
Hct
Plt Count
PT 14.4
INR 1.09
APTT 25.3
Sodium
Potassium
Chloride
Carbon Dioxide
BUN
Creatinine
Glucose
Calcium
04/26/25 04/26/25 04/26/25
06:31 13:00 19:00
WBC
Hgb 11.6 L Pending Pending
Hct 34.3 L
Plt Count 177
PT
INR
APTT
Sodium 139
Potassium 4.0
Chloride 111 H
Carbon Dioxide 25
BUN 13
Creatinine 0.8
Glucose 131 H
Calcium 8.4
Vital Signs:
Vital Signs
Temp Pulse Resp BP Pulse Ox
98.2 F 64 14 148/60 96
07/06/25 03:34 04/26/25 03:34 04/26/25 03:34 04/26/25 03:34 04/26/25 03:34
[2025-04-26] MEDS: PROTONIX 40 MG PO (08:22)
[2025-04-26] MEDS: EFFEXOR XR 75 MG PO (08:22)
--- NOTE | 2025-04-26 11:31 | CON.CRS ---
Addendum entered and electronically signed by Polo Melara MD 04/26/25 14:15:
Patient seen and examined.
Patient is a 69 yo M with with a PMH of GERD, anxiety/depression, warm hemolytic anemia s/p chemo in 2007, CVA, and prostate cancer s/p XRT who presented to the hospital following a syncopal event. Mr. Dan states that he was at a polo match
yesterday and had fried chicken for lunch with family. Later he felt a crampy numbness in his lower abdomen with the urge to defecate. He stood up on his way to the bathroom at which time he lost consciousness and slumped to the ground. In the
ED, he reports a normal BM followed by multiple episodes of BRBPR. He has not had a normal bowel movement since admission. No significant bleeding since admission. Denies any nausea or vomiting. He is passing flatus. Of note, he was playing
[employer] about 3 weeks ago and did slide a few times to catch the ball. He denies any LUQ abdominal pain or discomfort. Currently denies any dizziness or lightheadedness.
His last colonoscopy was by Dr. Gabriel in 12/2024 for issues with rectal bleeding and a positive Cologuard test. Exam was notable for 2 mm polyp in the ascending colon, two 3 mm polyps in the hepatic flexure, one 3 mm polyp in the descending colon,
multiple recently bleeding colonic angiodysplastic dysplastic lesions within the distal rectum endoscopically consistent with radiation-induced proctitis.
Gen: NAD
Abd: soft, mild tenderness in RLQ/suprapubic, no LUQ tenderness, ND, non-peritoneal
Labs and CT scan imaging were reviewed.
Patient is a 69 yo M p/w crampy lower abdominal pain likely secondary to lower GI bleed from radiation proctitis
Source of bleeding is most likely related to his previously noted radiation proctitis and AVMs, and less likely related to an infectious or ischemic event. Recommend medical management with IV fluid resuscitation and trending of his symptoms and
hemoglobin. Consider GI evaluation and colonoscopy if bleeding persists. No indication or role for surgical intervention at this time. No clear indication for antibiotics at this time. Diet clears and advance as tolerated.
Regarding his grade 1 subcapsular splenic laceration, this is most likely a traumatic event sustained during his prior for small activities. Less likely related to splenic swelling from an autoimmune reaction, which she has reported in the past.
No clinical signs of bleeding with stable Hb, normal BP, and lack of tachycardia. Little to no concern for active bleeding at this time. No indication or role for surgical intervention at this time. Would restrict activities for the next 2 to 4
weeks to allow this area to completely heal.
-- No plans or indication for surgical intervention
-- Diet: Clears and advance as tolerated
-- Monitor for further lower GI bleeding issues, consider GI consultation and colonoscopy if symptoms persist
-- No need for any intervention as a relates to his spleen apart from decreased activities for the next 2 to 4 weeks
-- Please call with any questions or concerns
Original Note:
Consultation
-
Date/Time Consultation Performed: 04/26/25 1030
Medical History
-
Chief Complaint: syncope
History of Present Illness:
Mr Dan is a 69 yo male with a h/o warm hemolytic anemia s/p chemo, CVA, prostate ca s/p XRT with radiation proctitis noted on colonoscopy in December of this year by Dr. Gabriel with multiple angiodysplastic lesions which had recently bled noted
at that time. He presented yesterday after a syncopal event. He had been outdoors at a polo match and had fried chicken for lunch with family, later while watching the match he felt a cramping in his lower abdomen with the urge to defecate. He stood
up to make his way to the restroom and lost consciousness. In the ED, he reports a normal BM followed by multiple episodes of passage of bright red blood. Also of note, he was playing fistball about 3 weeks ago and did slide a few times to catch a
ball. He denies fevers or chills. He denies nausea or vomiting. He does have some mild discomfort currently across the lower abdomen with some mild to moderate tenderness in the RLQ.
Past Medical History
Past Medical History: Cancer (prostate s/p XRT), CVA (2011), GERD, Psychiatric (ADHD, depression) and Other (warm hemolytic anemia s/p chemo 2007)
Past Surgical History: Other (last colonoscopy 12/2024)
Social History
Tobacco: Non-Smoker
Alcohol: Occasional
Living: With Family
Family History
Family History: Early CAD (sister)
Allergies / Home Medications
Allergy/AdvReac Type Severity Reaction Status Date / Time
No Known Drug Allergies Allergy Unknown Verified 12/03/24 12:27
Sulfa (Sulfonamide Allergy Rash Verified 12/03/24 12:27
Antibiotics)
molds Allergy Unknown Uncoded 12/03/24 12:27
pollens Allergy Unknown Uncoded 12/03/24 12:27
seasonal Allergy Unknown Uncoded 12/03/24 12:27
�Medication �Instructions �Recorded �Confirmed �Type
aspirin 325 mg tablet 325 mg PO DAILY Blood Clot 04/28/13 04/25/25 History
Prevention/Tx
dextroamphetamine-amphetamine 30 30 mg PO DAILY Mental 12/20/16 04/26/25 History
mg tablet (Adderall) Health/Anxiety
multivitamin 1 ea PO DAILY Supplement 12/20/16 04/26/25 History
venlafaxine 75 mg capsule,extended 75 mg PO DAILY Mental 12/20/16 04/25/25 History
release 24 hr Health/Anxiety
omeprazole 40 mg capsule,delayed 40 mg PO DAILY Gastrointestinal 04/25/25 04/25/25 History
release Issue
tamsulosin 0.4 mg capsule (Flomax) 0.4 mg PO DAILY Urinary Issue 04/25/25 04/25/25 History
Review of Systems
-
History Source: Patient
All other systems: Negative unless noted
A 10 point review of systems was completed, and was negative except as per HPI.
Physical Exam
Vital Signs
Temp 99.2 F 04/26/25 07:30
Pulse 72 04/26/25 07:30
Resp Rate 16 04/26/25 07:30
Blood pressure 132/65 04/26/25 07:30
SaO2 97 04/26/25 07:30
04/25/25 04/26/25 04/27/25
06:59 06:59 06:59
Actual Weight 83.603 kg
Body Mass Index (BMI) 28.9
Lab Results / Allergies
04/26/25 06:31
WBC 8.3 10^3/uL (4.8-10.8) 04/26/25 06:31
Hgb 11.6 g/dL (13.0-18.0) L 04/26/25 06:31
Hgb 11.8 g/dL (13.0-18.0) L 04/26/25 06:31
Hct 34.3 % (39.0-52.0) L 04/26/25 06:31
Plt Count 177 10^3/uL (130-400) 04/26/25 06:31
Abs Immat Gran (auto) 0.0 10^3/uL (0-0.05) 04/26/25 06:31
Neutrophils % 75.5 % (42.2-75.2) H 04/26/25 06:31
Allergy/AdvReac Type Severity Reaction Status Date / Time
No Known Drug Allergies Allergy Unknown Verified 12/03/24 12:27
Sulfa (Sulfonamide Allergy Rash Verified 12/03/24 12:27
Antibiotics)
molds Allergy Unknown Uncoded 12/03/24 12:27
pollens Allergy Unknown Uncoded 12/03/24 12:27
seasonal Allergy Unknown Uncoded 12/03/24 12:27
Physical Exam
General: Well Developed and Well Nourished
HEENT: Moist Mucous Membranes
GI: Soft, Normal Bowel Sounds and Tender (lower abdomen right >left)
Rectal: Hemorrhoids (external, nonbleeding) and Other (no palpable ulcerations/masses. no stool or blood in the rectal vault)
Skin: Warm and Dry
Neuro: Awake, Alert and AO x 3
Psych: Calm
Data Reviewed
-
CT Scan: Image Personally Visualized and interpreted, Report Reviewed by me, Discussed with Physician and Discussed with Patient
Labs: Labs Reviewed by me, Discussed with Physician and Discussed with Patient
Old Records: Reviewed
Assessment / Plan
-
69 yo male with a h/o warm hemolytic anemia s/p chemo, CVA, prostate ca s/p XRT with prior episodes of bleeding secondary to radiation proctitis who presented after syncope and collapse at a polo match with subsequent passage of bright red blood
rectally. Still with some lower abdominal cramping and RLQ tenderness.
CT imaging notable for an enlarged spleen (stable from prior CT's) (13.6 from 14.5, 15cm) with complex perisplenic fluid likely reflective of a hematoma either from playing contact sports 3 weeks ago vs from recent collapse yesterday. There is mild
wall thickening with pericolonic stranding throughout the colon reflective of pancolitis with mild hypoattenuation of at the splenic flexure.
Suspect infectious vs inflammatory etiology, less likely ischemic given pain pattern and normal lactate/WBC. +BRBPR, unclear if related to colitis vs known radiation proctitis. No rectal bleeding on exam. Mild to mod cramping and discomfort to lower
abdomen. Hemoglobins have been stable. C-diff negative, other stool samples pending. Afebrile with stable vital signs.
Plan:
No plans for emergent surgery
Ok for clear liquids
If h/h stable at 1300, will stop q6h checks and check CBC in AM
Transfuse if needed
[2025-04-26 13:38] LABS: Hemoglobin 11.6 g/dL (13.0-18.0)
[2025-04-26 13:48] LABS: Blood Urea Nitrogen 11 mg/dl (9-20); Calcium 8.5 mg/dl (8.4-10.2); Carbon Dioxide 25 mmol/L (22-30); Chloride 110 mmol/L (98-107); Estimated Creatinine Clearance 70 ml/min; Glucose 123 mg/dl (70-99); Potassium 3.8 mmol/L (3.5-5.1); Sodium 138 mmol/L (135-145); eGFR > 60.00
[2025-04-26] MEDS: FLOMAX 0.4 MG PO (17:07)
[2025-04-26 20:19] LABS: Hematocrit 30.2 % (39.0-52.0); Hemoglobin 10.2 g/dL (13.0-18.0)
[2025-04-26] MEDS: ZOFRAN 4 MG IV (20:57)
[2025-04-27 00:14] VITALS: BP 114/55
[2025-04-27 03:24] VITALS: BP 102/49
[2025-04-27 07:05] VITALS: BP 110/52
--- NOTE | 2025-04-27 07:41 | W.PN.HOSP.TC ---
Today's Communication/Plan
-
advance diet to Low residue
monitor H&H
Possible discharge tomorrow if remains stable/continues to improve.
Assessment / Plan
Assessment / Plan
Physical Exam
General: No Apparent Distress
HEENT: Normocephalic
Respiratory: Clear to Auscultation Bilaterally
Cardiac: S1/S2 and Regular Rhythm
GI: Soft, tenderness to palpation lower quadrants, no rebound or guarding
Musculoskeletal: No Edema
Skin: Warm and Dry
Neuro: AO x 3 conversant coherent
Psych: Calm
Assessment/Plan
69M prostate cancer s/p XRT, CVA, GERD, autoimmune hemolytic anemia, ADHD/Depression presented to the ER post an episode of syncope that occurred around 4PM on 04/25/25. Patient was at a polo match when he had onset of abdominal pain and urge to
have a bowel movement. He then lost consciousness. Patient was unconscious for about 30 seconds. He denied preceding chest pain or dizziness. He was brought to the ER. He reported that in the ER he had a normal BM followed by diarrhea that was
bloody. 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 He denied trauma but reported that three weeks prior, he was playing Fistball (similar to volleyball) where he reported slid to catch ball.
CT A/P
IMPRESSION:
Splenomegaly measuring up to 13.6 cm with a mildly hyperdense, crescent collection along the spleen which likely represents a perisplenic hematoma. This measures 1.2 cm in maximal thickness.
There is mild wall thickening with pericolonic stranding throughout the colon which likely represents pancolitis. The colon at the splenic flexure appears mildly hypoattenuating which can be seen with ischemia.
2.7 cm hemangioma within the liver, similar to prior.
Small hiatal hernia.
Vasovagal Syncope
History of Syncope without known etiology
-with preceding abdominal cramping and finding of colitis on CT scan, suspect vasovagal
-admit to telemetry
-Troponin neg x4
-treat Colitis (as below)
-IVF
Pancolitis, possible ischemic colitis
Bright red blood per rectum in setting of colitis suspected radiation proctitis (history of Prostate Cancer status post XRT) and AVMs, and less likely related to an infectious or ischemic event
-no significant lactic acidosis.
-monitoring off abx
-IVF completed
-Clear Liquids diet advanced to low residue
-Stool studies NGTD
-H&H stable
-hold HOGSHEAD DUMPER asa 325mg for now
Perisplenic Hematoma, likely subacute -- most likely a traumatic event sustained during his prior for small activities; less likely related to splenic swelling from an autoimmune reaction
patient with history of Splenomegaly
-Suspected injury to spleen 3 weeks ago during match of Fistball
-Restrict activities for the next 2 to 4 weeks to allow this area to completely heal
-GS consult appreciated
BPH - HOGSHEAD DUMPER Flomax
ADHD - patient takes Adderall at home, will hold here
GERD - HOGSHEAD DUMPER PPI
DVT PPx SCD
FULL CODE
I spent a total of 45 minutes with the patient or on the floor. More than 50% of this time involved counseling and coordination of care.
Anticipated Discharge: Within 24 hours
Subjective/Interval History
-
Date of Service: April 27, 2025
Reports overall feeling well, bloody bowel movements resolved. Some abd tenderness remains.
Objective Data
-
Labs:
Laboratory Results
04/26/25 04/27/25
20:13 07:36
WBC Pending
Hgb 10.2 L Pending
Hct 30.2 L Pending
Plt Count Pending
Sodium Pending
Potassium Pending
Chloride Pending
Carbon Dioxide Pending
BUN Pending
Creatinine Pending
Glucose Pending
Calcium Pending
Vital Signs:
Vital Signs
Temp Pulse Resp BP Pulse Ox
98.6 F 77 14 102/49 95
04/27/25 03:24 04/27/25 03:24 04/27/25 03:24 04/27/25 03:24 04/27/25 03:24
[2025-04-27 08:17] LABS: Hematocrit 33.2 % (39.0-52.0); Hemoglobin 11.0 g/dL (13.0-18.0); Mean Corp Hgb Conc. 33.1 g/dL (33.0-37.0); Mean Corpuscular Volume 83.8 fL (80.0-94.0); Platelet Count 160 10^3/uL (130-400); Red Cell Dist. Width 15.2 % (11.5-14.5)
[2025-04-27] MEDS: EFFEXOR XR 75 MG PO (08:32)
[2025-04-27] MEDS: NSS IV (08:32)
[2025-04-27] MEDS: PROTONIX 40 MG PO (08:32)
[2025-04-27 09:04] LABS: Blood Urea Nitrogen 9 mg/dl (9-20); Calcium 8.3 mg/dl (8.4-10.2); Carbon Dioxide 24 mmol/L (22-30); Chloride 110 mmol/L (98-107); Estimated Creatinine Clearance 63 ml/min; Glucose 92 mg/dl (70-99); Magnesium 2.2 mg/dl (1.6-2.3); Potassium 4.1 mmol/L (3.5-5.1); Sodium 139 mmol/L (135-145); eGFR > 60.00
[2025-04-27 11:00] VITALS: BP 123/65
--- NOTE | 2025-04-27 14:00 | CM ---
CM reviewed chart, patient seen bedside with , initial assessment completed. Patient resides with his in a multiple story home, bedroom on second floor, 3-4 steps to enter home. Patient denies use of DME, VN/SNF history. Patient confirms
PCP Franklin De La Cruz, pharmacy [facility], confirms prescription coverage. Patient denies insecurities at home. CM will continue to follow for all discharge planning needs.
Plan; home no needs
[2025-04-27 15:10] VITALS: BP 143/63
[2025-04-27] MEDS: FLOMAX 0.4 MG PO (17:07)
[2025-04-27 23:04] VITALS: BP 125/58
[2025-04-28 06:41] LABS: Hematocrit 33.8 % (39.0-52.0); Hemoglobin 11.2 g/dL (13.0-18.0); Mean Corp Hgb Conc. 33.1 g/dL (33.0-37.0); Mean Corpuscular Volume 82.0 fL (80.0-94.0); Platelet Count 174 10^3/uL (130-400); Red Cell Dist. Width 15.2 % (11.5-14.5)
[2025-04-28 07:02] LABS: Blood Urea Nitrogen 16 mg/dl (9-20); Calcium 8.8 mg/dl (8.4-10.2); Carbon Dioxide 25 mmol/L (22-30); Chloride 109 mmol/L (98-107); Estimated Creatinine Clearance 79 ml/min; Glucose 117 mg/dl (70-99); Magnesium 2.1 mg/dl (1.6-2.3); Potassium 4.0 mmol/L (3.5-5.1); Sodium 138 mmol/L (135-145); eGFR > 60.00
[2025-04-28 07:18] VITALS: BP 116/62
[2025-04-28] MEDS: EFFEXOR XR 75 MG PO (08:37)
[2025-04-28] MEDS: PROTONIX 40 MG PO (08:37)
--- NOTE | 2025-04-28 09:53 | W.PN.HOSP.TC ---
Today's Communication/Plan
-
Discharge
Assessment / Plan
Assessment / Plan
Physical Exam
General: No Apparent Distress
HEENT: Normocephalic
Respiratory: Clear to Auscultation Bilaterally
Cardiac: S1/S2 and Regular Rhythm
GI: Soft, mild tenderness to palpation lower quadrants, no rebound or guarding
Musculoskeletal: No Edema
Skin: Warm and Dry
Neuro: AO x 3 conversant coherent
Psych: Calm
Assessment/Plan
69M prostate cancer s/p XRT, CVA, GERD, autoimmune hemolytic anemia, ADHD/Depression presented to the ER post an episode of syncope that occurred around 4PM on 04/25/25. Patient was at a polo match when he had onset of abdominal pain and urge to
have a bowel movement. He then lost consciousness. Patient was unconscious for about 30 seconds. He denied preceding chest pain or dizziness. He was brought to the ER. He reported that in the ER he had a normal BM followed by diarrhea that was
bloody. 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 He denied trauma but reported that three weeks prior, he was playing Fistball (similar to volleyball) where he reported slid to catch ball.
CT A/P
IMPRESSION:
Splenomegaly measuring up to 13.6 cm with a mildly hyperdense, crescent collection along the spleen which likely represents a perisplenic hematoma. This measures 1.2 cm in maximal thickness.
There is mild wall thickening with pericolonic stranding throughout the colon which likely represents pancolitis. The colon at the splenic flexure appears mildly hypoattenuating which can be seen with ischemia.
2.7 cm hemangioma within the liver, similar to prior.
Small hiatal hernia.
Likely Vasovagal Syncope
-Tele admit
-Troponin neg x4
-treat Colitis (as below)
-IVF completed, tolerating diet
Pancolitis, possible ischemic colitis
Bright red blood per rectum in setting of colitis suspected radiation proctitis (history of Prostate Cancer status post XRT) and AVMs, and less likely related to an infectious or ischemic event
-no significant lactic acidosis.
-monitoring off abx
-IVF completed
-Clear Liquids diet advanced to low residue, tolerating
-Stool studies NGTD
-H&H stable, trending up
-hold [employer] asa 325mg for now
Perisplenic Hematoma, likely subacute -- most likely a traumatic event sustained during his prior for small activities; less likely related to splenic swelling from an autoimmune reaction
patient with history of Splenomegaly
-Suspected injury to spleen 3 weeks ago during match of Fistball
-Restrict activities for the next 2 to 4 weeks to allow this area to completely heal
-GS consult appreciated
BPH - [employer] Flomax
ADHD - patient takes Adderall at home, will hold here
GERD - [employer] PPI
DVT PPx SCD
FULL CODE
Medically stable for discharge home with outpatient follow up recommendations.
I spent a total of 40 minutes with the patient or on the floor. More than 50% of this time involved counseling and coordination of care.
Anticipated Discharge: Today
Subjective/Interval History
-
Date of Service: April 28, 2025
Seen and examined at bedside in no acute distress resting comfortably in bed. reports feeling well, last bowel movement diarrhea but non-bloody. Eager to go home.
Objective Data
-
Labs:
Laboratory Results
04/28/25
06:08
WBC 5.9
Hgb 11.2 L
Hct 33.8 L
Plt Count 174
Sodium 138
Potassium 4.0
Chloride 109 H
Carbon Dioxide 25
BUN 16
Creatinine 0.8
Glucose 117 H
Calcium 8.8
Vital Signs:
Vital Signs
Temp Pulse Resp BP Pulse Ox
98.8 F 80 18 116/62 97
04/28/25 07:18 04/28/25 07:18 04/28/25 07:18 04/28/25 07:18 04/28/25 07:18
I&O
04/27/25 04/28/25 04/29/25
06:59 06:59 06:59
Intake Total 1520 / 1520
Balance 1520 / 1520
--- NOTE | 2025-04-28 12:08 | CM ---
CM reviewed chart, patient seen bedside, hopeful for discharge today. Patient denies needs from CM. IMM verbally reviewed, provided with copy, placed in chart. CM will continue to follow for all discharge planning needs.
Plan; home no needs when stable.
[2025-04-28 15:42] VITALS: BP 129/71
--- NOTE | 2025-04-28 16:32 | W.DCSUMMARY ---
Discharge Summary
Discharge Data
Date of Admission: 04/25/25
Date of Discharge: 04/28/25
-
Pending Results: No
Discharge Plan
-
Patient Disposition: Home (Routine Discharge)
Discharge Diagnosis/Procedures: Radiation Proctitis
Pancolitis
Splenic Laceration, Perisplenic Hematoma
Mild Anemia
Condition: Fair
Diet: Low Residue
Additional Diets: Low residue diet for 1 week then advance as tolerated
Activity: No strenuous activity
Additional Activity: No contact sports or strenuous exercise for 2-4 weeks
Driving Restrictions: As prior to admission
Bathing Restrictions: None
Blood Work: Repeat CBC and BMP with primary care provider in 1 week of discharge.
Activity Restrictions/Additional Instructions:
Follow up with primary care provider in 1 week of discharge and keep appointment with GI.
Continue hold on home aspirin medication at this time. Follow up with primary care provider or GI to determine when safe to resume, if necessary to resume, and/or if an alternative agent is required instead.
Please take medications as prescribed/recommended and follow up with primary care provider and/or other healthcare provider involved in your care for further adjustments to your medication regimen as necessary.
Referrals:
Franklin De La Cruz DO [Family Provider, [facility]] - in one week
Yoshi Gabriel DO [Active, Gastroenterology] - 05/05/25
Prescriptions:
Continued
multivitamin 1 EACH tablet
1 ea PO DAILY
Rx Instructions:
not taking anymore
venlafaxine 75 MG capsule,extended release 24hr
75 mg PO DAILY
dextroamphetamine-amphetamine [Adderall] 30 MG tablet
30 mg PO DAILY
Patient Comments:
not taking anymore
omeprazole 40 mg Capsule,Delayed Release(Dr/Ec)
40 mg PO DAILY
tamsulosin [Flomax] 0.4 mg Capsule
0.4 mg PO DAILY
Held
aspirin 325 MG tablet
325 mg PO DAILY
Hold Instructions: Follow up with primary care provider or GI to determine when safe to resume, if necessary to resume, and/or if an alternative agent is required instead.
Discharge Orders:
Discharge Patient (As Directed); Ordered 04/28/25
Ordered By: Efrain Santiago
Discharge Date and Time
Print Language: PASHTO
[2025-04-28] MEDS: FLOMAX 0.4 MG PO (17:09)
[2025-04-28] MEDS: PREVNAR 20 0.5 ML IM (17:10)
== END 2025-04-28 17:57 | disposition home or self-care (01) | DRG 394 ==
LOC: 4 WEST ACU 23:06
PROVIDERS: Hospitalist; Physician Assistant; Registered Nurse; Student in an Organized Health Care Education/Training Program; ADMITTING PHYSICIAN Student in an Organized Health Care Education/Training Program; ATTENDING PHYSICIAN Internal Medicine; CONSULT PHYSICIAN Surgery; EMERGENCY PHYSICIAN Emergency Medicine; FAMILY PHYSICIAN Family Medicine
DX: K62.7 Radiation proctitis (principal); D59.10 Autoimmune hemolytic anemia, unspecified; S36.039A Unspecified laceration of spleen, initial encounter; Y84.2 Radiological procedure and radiotherapy as the cause of abnormal reaction of the patient, or of later complication, without mention of misadventure at the time of the procedure; K21.9 Gastro-esophageal reflux disease without esophagitis; F32.A Depression, unspecified; F90.9 Attention-deficit hyperactivity disorder, unspecified type; Z88.2 Allergy status to sulfonamides; Z79.82 Long term (current) use of aspirin; N40.0 Benign prostatic hyperplasia without lower urinary tract symptoms; Z85.46 Personal history of malignant neoplasm of prostate; Z92.3 Personal history of irradiation; Z86.73 Personal history of transient ischemic attack (TIA), and cerebral infarction without residual deficits; B02.9 Zoster without complications; D18.03 Hemangioma of intra-abdominal structures; E86.0 Dehydration; F41.9 Anxiety disorder, unspecified; K44.9 Diaphragmatic hernia without obstruction or gangrene; K52.9 Noninfective gastroenteritis and colitis, unspecified; Z82.49 Family history of ischemic heart disease and other diseases of the circulatory system
CPT/HCPCS: 74177; 80048; 80053; 83605; 83690; 83735; 84100; 84484; 85014; 85018; 85025; 85027; 85610; 85730; 86850; 86900; 86901; 87045; 87046; 87324; 87427; 87449; 90677; 93005; 96361; 96374; 99285; G0009; Q9967